=== PATIENT | female | born 1995 | race Caucasian/White ===

== ENCOUNTER 2017-06-03 11:52 | Emergency (ER) | payer OTHER ==
[~2017-06-03] VITALS: Ht 170.2 cm; Wt 51.3 kg
--- NOTE | 2017-06-03 12:35 | NUR ---
PATIENT WAS EXAMINED BY DR ROJAS. PATIENT A & O X4.
--- NOTE | 2017-06-03 12:49 | NUR ---
Patient discharged to home in stable conditon. Written and verbal after care instructions given. Patient verbalizes understanding of instructions.
[2017-06-03 12:52] VITALS: BP 105/68
== END 2017-06-03 12:53 | disposition home or self-care (01) ==
LOC: ER 11:52
DX: J02.9 Acute pharyngitis, unspecified (principal)
CPT/HCPCS: 99283; A4663